=== PATIENT | male | born 1990 | race Caucasian/White ===

== ENCOUNTER 2022-08-30 10:30 | Inpatient (IN) | payer OTHER ==
[~2022-08-30] VITALS: Ht 167.6 cm; Wt 65.9 kg
[2022-08-30] MEDS ORDERED: NALOXONE HCL 1 MG/ML 2 ML SYRINGE IVP ONE (11:30)
[2022-08-30 12:42] LABS: BASOPHILS % (AUTO) 0.6 % (0.0-2.0); EOSINOPHILS % (AUTO) 0.7 % (1.0-6.0); HEMATOCRIT 45.5 % (41-53); HEMOGLOBIN 15.4 g/dL (13.5-17.5); LYMPHOCYTES # (AUTO) 1.6 K/uL (1.0-4.8); LYMPHOCYTES % (AUTO) 31.2 % (22.0-44.0); MEAN CORPUSCULAR HEMOGLOBIN 30.4 pg (26.0-34.0); MEAN CORPUSCULAR HGB CONC 33.9 G/dL (31.0-37.0); MEAN CORPUSCULAR VOLUME 90 fL (80-100); MONOCYTES # (AUTO) 0.4 K/uL (0.1-1.0); MONOCYTES % (AUTO) 7.8 % (2.0-9.0); NEUTROPHILS # (AUTO) 3.1 K/uL (1.8-7.7); NEUTROPHILS % (AUTO) 59.7 % (40.0-70.0); PLATELET COUNT (AUTO) 181 K/uL (150-450); RED BLOOD CELL COUNT(AUTO) 5.07 MIL/uL (4.50-5.90)
[2022-08-30] MEDS ORDERED: ACETAMINOPHEN 325 MG TABLET PO PRN ×2 (12:45→14:45)
[2022-08-30] MEDS ORDERED: ONDANSETRON HCL 4 MG/2 ML VIAL IVP PRN (12:45)
[2022-08-30 12:49] LABS: COVID AG,FIA SOURCE NASOPHARYNGEAL
[2022-08-30 12:55] LABS: ANION GAP 1 mmol/L (8-16); CALCIUM, TOTAL 9.1 mg/dL (8.8-10.5); CARBON DIOXIDE 35 mmol/L (22-29); CHLORIDE 99 mmol/L (98-107); CREATININE 0.68 mg/dL (0.60-1.30); GLUCOSE,RANDOM 77 mg/dL (70-110); POTASSIUM 4.2 mmol/L (3.5-5.1); SODIUM SERUM 135 mmol/L (136-145); UREA NITROGEN, BLOOD 10 mg/dL (7-18)
[2022-08-30 12:56] LABS: GLOMERULAR FILTR. RATE CALC > 60 mL/min (>60)
[2022-08-30 13:01] LABS: ALANINE AMINOTRANSFERASE 31 U/L (12-78); ALBUMIN 3.8 g/dL (3.4-5.0); ALKALINE PHOSPHATASE 105 U/L (46-116); ASPARTATE AMINOTRANSFERASE 20 U/L (15-37); BILIRUBIN,TOTAL 0.4 mg/dL (0.1-1.0); TOTAL PROTEIN, SERUM 7.8 g/dL (6.4-8.2)
[2022-08-30 14:10] VITALS: BP 123/77
[2022-08-30 14:22] VITALS: BP 136/76
[2022-08-30] MEDS ORDERED: METOCLOPRAMIDE HCL 5 MG/ML 2 ML VIAL IVP PRN (14:45)
[2022-08-30] MEDS ORDERED: LOPERAMIDE HCL 2 MG CAPSULE PO PRN (14:45)
[2022-08-30] MEDS ORDERED: LORazepam 2 MG/ML VIAL IVP PRN (14:45)
[2022-08-30] MEDS ORDERED: DICYCLOMINE HCL 10 MG CAPSULE PO PRN (14:45)
[2022-08-30 19:51] VITALS: BP 99/54
[2022-08-30] MEDS ORDERED: TEMAZEPAM 15 MG CAPSULE PO SCH (21:00)
[2022-08-31 04:15] VITALS: BP 125/66
[2022-08-31 07:37] VITALS: BP 113/69
== END 2022-08-31 14:00 | DRG 897 ==
LOC: EMS 10:35 → 6S 14:01
PROVIDERS: ADMIT Hospitalist; ATTEND Hospitalist
DX: F11.10 Opioid abuse, uncomplicated (principal); E87.1 Hypo-osmolality and hyponatremia; Z20.822 Contact with and (suspected) exposure to COVID-19; Z79.899 Other long term (current) drug therapy; Z87.891 Personal history of nicotine dependence
CPT/HCPCS: 80053; 85025; 99285; J2310